=== PATIENT | female | born 1980 | race Caucasian/White ===

== ENCOUNTER 2016-10-06 18:25 | Inpatient (IN) | payer OTHER ==
[~2016-10-06 18:25] MED LIST: KETOROLAC TROMETHAMINE 60 MG/2 ML SDV ONE; ONDANSETRON HCL INJ/PF 4 MG/2 ML SDV ONE; PHENYLEPHRINE HCL INJ/PF 10 MG/1 ML SDV ONE
--- NOTE | 2016-10-06 19:32 | Non Stress Test Report ---
Non Stress Test Datetime Report Generated by CPN: 10/06/2016 19:32 DEMOGRAPHIC EGA NST: 38.5 INDICATION Indication for Study: Ordered by Provider Indication for Study (NST) Other: labor check MONITORING Monitor Explained: Monitor Explained; Test Explained; Patient Verbalized Understanding Time on Monitor: 10/06/2016 18:57 NST INTERVENTIONS NST Interventions: PO Hydration; Reposition Patient Physician Notified NST: Dr Murphy BABY A: [id number] BABY A Movement : Present Contraction Frequency : 6-7 FHR Baseline : 130 Accelerations : 15X15 Decelerations : None Variability : Moderate 6-25bpm NST Review: Meets Criteria for Reactive NST NST Review and Verified By : Tamar WUT Results: Reactive NST REPORT Report Trigger: Send Report
[2016-10-06 19:36] LABS: APPEARANCE,URINE CLOUDY; BILIRUBIN,URINE NEGATIVE (NEGATIVE); GLUCOSE, URINE NEGATIVE (NEGATIVE); KETONES,URINE TRACE mg/dL (NEGATIVE); LEUKOCYTE ESTERASE,URINE LARGE (NEGATIVE); NITRITE,URINE NEGATIVE (NEGATIVE); PROTEIN,URINE NEGATIVE (NEGATIVE); URINE SPECIFIC GRAVITY 1.006; UROBILINOGEN,URINE NEGATIVE mg/dL (<2.0)
[2016-10-06] MEDS ORDERED: CITRIC ACID/SODIUM CITRATE ORAL SOLN 15 ML UDCUP ONE (19:56)
--- NOTE | 2016-10-06 20:00 | L&D Flow Sheet ---
LD Flowsheet Datetime Report Generated by CPN: 10/06/2016 20:00 Datetime: 10/06/2016 19:50 IV/Blood Work: IV Started; IV Bolus Started; New IV Bag Hung (Yareli Caruso) Patient Care Comments: 18G LFA x1 attempt, pt tolerated well. (Yareli Caruso) Datetime: 10/06/2016 19:30 NBP Sys/Brit/Mean (mmHg): 112 (QS system process) : 57 (QS system process) : 77 (QS system process) Pulse: 74 (QS system process) Datetime: 10/06/2016 19:27 Respirations: 18 (Yareli Caruso) Monitor Mode: External; Palpation (Yareli Caruso) Monitor Interventions for UA: [place] Adjusted (Yareli Caruso) Frequency (min): 6-7 (Yareli Caruso) Quality: Mild/Moderate (Yareli Caruso) Duration (sec): 80-100 (Yareli Caruso) Resting Tone (Palpate): Relaxed (Yareli Caruso) Monitor Mode: External US (Yareli Caruso) Monitor Interventions for FHR: Ultrasound Adjusted (Yareli Caruso) FHR Baseline Rate : 130 (Yareli Caruso) Variability: Moderate 6-25 bpm (Yareli Caruso) Accelerations: 15X15 (Yareli Caruso) Decelerations: None (Yareli Caruso) Patient Position/Activity: Left Lateral (Yareli Caruso) Datetime: 10/06/2016 19:10 Pain Scale: 2 (Yareli Caruso) Pain Presence: Intermittent (Yareli Caruso) Pain Type: Cramping (Yareli Caruso) Pain Location: Abdomen; Back (Yareli Caruso) Pain Goal: 0 (Yareli Caruso) Pain Coping: Talking Through Contractions (Yareli Caruso) Dilatation (cm): closed (Yareli Caruso) Effacement (%): thick (Yareli Caruso) Station: high (Yareli Caruso) Exam by: Tamar Caruso Rn (Yareli Caruso) Vaginal Bleeding: None (Yareli Caruso) Level of Consciousness: Fully Conscious (Yareli Caruso) DTR's/Clonus: DTRs 2+; No Clonus (Yareli Caruso) Headache: Denies (Yareli Caruso) Breath Sounds, Left: Clear and Equal (Yareli Caruso) Breath Sounds, Right: Clear and Equal (Yareli Caruso) Nausea/Vomiting: Denies (Yareli Caruso) RUQ Epigastric Pain: Denies (Yareli Caruso) Patient Position/Activity: Left Lateral (Yareli Caruso) Instructional Method: Verbal (Yareli Caruso) Plan of Care: Plan of Care Discussed (Yareli Caruso) Unit Routine: [place] to Room; Call Baum; Bed; Monitoring (Yareli Caruso) Datetime: 10/06/2016 19:09 Communication: RN at Bedside; Report Given to @ Doug Caruso RN (Shobha Meza RN) Datetime: 10/06/2016 19:05 Communication: Report Given to @ Dr Murphy ([facility], [facility]) Communication Comments: Dr Murphy on unit given verbal report of arrival, h/o previous c/s with planned c/s on 10/08/16 ([facility], [facility]) Datetime: 10/06/2016 19:00 NBP Sys/Brit/Mean (mmHg): 105 (QS system process) : 61 (QS system process) : 77 (QS system process) Pulse: 75 (QS system process) Respirations: 18 ([facility]) Temperature (F): 97.9 ([facility]) Temperature (C): 36.6 (QS system process) Datetime: 10/06/2016 18:56 Patient Care Comments: previous c/s x1 arrives to unit via wheelchair with c/o contractions worsening in intensity since 0800 today. U/A collected and sent. EFM explained and applied positioned to left lateral ([facility], [facility])
[2016-10-06 20:01] LABS: URINE BARBITURATES SCREEN NEGATIVE; URINE METHADONE SCREEN NEGATIVE; URINE OPIATES LOW NEGATIVE; URINE PHENCYCLIDINE SCREEN NEGATIVE
[2016-10-06] MEDS ORDERED: CEFAZOLIN 2 GM/D5W RTU 2 GM/50 ML RTUPB IV ONE (20:21)
[2016-10-06] MEDS ORDERED: OXYTOCIN 10 UNIT/ML VIAL ONE (20:31)
[2016-10-06] MEDS ORDERED: FENTANYL CITRATE INJ/PF 100 MCG/2 ML AMPUL ONE (20:31)
[2016-10-06] MEDS ORDERED: MIDAZOLAM 2 MG/2 ML INJ ONE (20:32)
[2016-10-06] MEDS ORDERED: OXYTOCIN/NORMAL SALINE 20 UNIT/1,000 ML RTUINJ ONE (20:32)
[2016-10-06 20:44] LABS: ABSOLUTE BASOPHILS # (AUTO) 0.1 10^3/uL (0.0-0.2); ABSOLUTE EOSINOPHILS # (AUTO) 0.1 10^3/uL (0.0-0.6); ABSOLUTE LYMPHOCYTES (AUTO) 3.1 10^3/uL (0.5-4.7); ABSOLUTE MONOCYTES (AUTO) 0.7 10^3/uL (0.1-1.4); BASOPHILS % (AUTO) 0.6 % (0-2); EOSINOPHILS % (AUTO) 0.4 % (0-6); HEMATOCRIT 38.7 % (36.0-47.0); HEMOGLOBIN 12.7 g/dL (12.0-15.5); HGB HCT DIFFERENCE -0.6; LYMPHOCYTES % (AUTO) 22.6 % (13-45); MEAN CORPUSCULAR HEMOGLOBIN 26.2 pg (27.0-33.4); MEAN CORPUSCULAR HGB CONC 32.8 g/dL (32.0-36.0); MEAN CORPUSCULAR VOLUME 80 fl (80-97); MONOCYTES % (AUTO) 4.8 % (3-13); RED BLOOD COUNT 4.84 10^6/uL (3.72-5.28); RED CELL DISTRIBUTION WIDTH 14.4 % (11.5-14.0); SEGMENTED NEUTROPHILS % (AUTO) 71.6 % (42-78)
--- NOTE | 2016-10-06 22:00 | L&D Flow Sheet ---
LD Flowsheet Datetime Report Generated by CPN: 10/06/2016 22:00 Datetime: 10/06/2016 20:30 NBP Sys/Brit/Mean (mmHg): 115 (QS system process) : 58 (QS system process) : 78 (QS system process) Pulse: 78 (QS system process) Datetime: 10/06/2016 20:21 Provider Notified (Name): Dr Murphy at bedside for eval and plan of care discussion. (Yareli Caruso) Datetime: 10/06/2016 20:00 NBP Sys/Brit/Mean (mmHg): 124 (QS system process) : 57 (QS system process) : 84 (QS system process) Pulse: 108 (QS system process)
[2016-10-06] MEDS ORDERED: ACETAMINOPHEN 100 ML IV ONE (22:26)
[2016-10-06] MEDS ORDERED: MISOPROSTOL 0.2 MG TABLET ONE (22:36)
[2016-10-06] MEDS ORDERED: MORPHINE SULFATE 10 MG/ML INJ ONE (23:53)
[2016-10-06] MEDS ORDERED: OXYCODONE-ACETAMINOPHEN 5-325 MG TABLET PO PRN (23:55)
[2016-10-06] MEDS ORDERED: OXYTOCIN/NORMAL SALINE 1,000 ML IV PRN (23:55)
[2016-10-06] MEDS ORDERED: SIMETHICONE 80 MG TAB.CHEW PO PRN (23:55)
[2016-10-06] MEDS ORDERED: MEASLES,MUMPS&RUBELLA VACC/PF 0.5 ML VIAL SUBCUT PRN (23:55)
[2016-10-06] MEDS ORDERED: RINGERS SOLUTION,LACTATED 1,000 ML IV PRN (23:55)
[2016-10-06] MEDS ORDERED: PROMETHAZINE HCL INJ 25 MG/1 ML VIAL IV PRN (23:55)
[2016-10-06] MEDS ORDERED: DIPH/PERTUSS(ACELL)/TETANUS VAC/PF 0.5 ML SYR (>=10YO) IM PRN (23:55)
[2016-10-06] MEDS ORDERED: ACETAMINOPHEN 100 ML IV PRN (23:55)
[2016-10-06] MEDS ORDERED: HYDROMORPHONE HCL INJ/PF 2 MG/ML AMPULE IV PRN (23:55)
[2016-10-06] MEDS ORDERED: ACETAMINOPHEN 325 MG TABLET PO PRN (23:55)
--- NOTE | 2016-10-07 00:35 | Delivery Summary ---
Del Sum A-C Datetime Report Generated by CPN: 10/07/2016 00:35 ADMISSION DATA Chief Complaint: Uterine Contractions; Suspected Ruptured Membranes Indication for Induction: Not Applicable Admission Impression: Term, Intrauterine ; Active Labor; Ruptured Membranes Admit Provider Comments: Term. SROM for repeat LTCS and BTL DELIVERY PERSONNEL Delivery Doctor:: Angelina Murphy MD Anesthesiologist:: Luanne Lerner MD POWDER MIXER:: Debra Collado CRNA Labor and Delivery Nurse:: Yareli Caruso, logistics center manager Nurse Practitioner:: RAFA Oswald Nursery Nurse:: Theresa Johnson, RN First Helper/MATERIALS AND CORROSION ENGINEER: Kamila Semar, SALES AND MARKETING EXECUTIVE First Helper/MATERIALS AND CORROSION ENGINEER: Courtney Collado, ST MATERNAL INFORMATION Delivery Anesthesia: Spinal Medications After Delivery: Pitocin Drip 20 Units/1000ml NSS; Other-Please Comment Meds After Delivery Comment: Cytotec 1000mcg MO Maternal Complications: None LABOR SUMMARY EDC: 10/15/2016 00:00 No. Babies in Womb: 1 Attempted: No Labor Anesthesia: None LABOR INFORMATION Reason for Induction: Not Applicable Onset of Labor: 10/06/2016 19:40 Oxytocin: N/A Group B Beta Strep: negative Antibiotics # of Doses: 1 Antibiotics Time of Last Dose: 2100 Name of Antibiotic Given: ancef Steroids Given: None Reason Steroids Not Administered: Not Applicable MEMBRANES Membranes Rupture Method: Spontaneous Rupture of Membranes: 10/06/2016 19:40 Length of Rupture (hr): 1.93 Amniotic Fluid Color: Clear Amniotic Fluid Amount: Moderate Amniotic Fluid Odor: Normal STAGES OF LABOR Stage 3 hr: 0 Stage 3 min: 0 Total Time in Labor hr: 1 Total Time in Labor min: 56 VAGINAL DELIVERY Episiotomy: None Laceration Extension: N/A Laceration Type: None Laceration Repair: Not Applicable Sponge Count Correct: N/A Sharps Count Correct: N/A CSECTION DELIVERY Primary Indication: Repeat CSection Urgency: Non-Scheduled CSection Incidence: Repeat Labor: Labor Elective: Nonelective CSection Incision: Lower Uterine Transverse BABY A INFORMATION Delivery Date/Time: 10/06/2016 21:36 Method of Delivery: Born in Route : No : N/A Forceps: N/A Vacuum Extraction: N/A Shoulder Dystocia : No PRESENTATION/POSITION BABY A Presentation: Breech PLACENTA INFORMATION BABY A Placenta Delivery Time : 10/06/2016 21:36 Placenta Method of Delivery: Expressed Placenta Status: Delivered SCORES BABY A Heart Rate 1 min: >100 bpm Resp Effort 1 min: Slow, Irregular Reflex Irritability 1 min: Cough or Sneeze or Pulls Away Muscle Tone 1 min: Active Motion Color 1 min: Body [place], Extremities Blue SCORE 1 MIN: 8 Heart Rate 5 min: >100 bpm Resp Effort 5 min: Good Cry Reflex Irritability 5 min: Cough or Sneeze or Pulls Away Muscle Tone 5 min: Active Motion Color 5 min: Body [place], Extremities Blue SCORE 5 MIN: 9 INFORMATION BABY A Gestational Age at Delivery: 38.5 Gestational Status: Early Term- 37- 38.6 Weeks Outcome : Liveborn Condition : Stable Infant Sex: Female IDENTIFICATION BABY A Infant Verification Date/Time: 10/06/2016 21:42 ID Band Number: [id number] Mother's Name Verified: Yes Infant RN Verifying : Fortino Dunn, RN Additional Verifying Personnel: Erika Ronquillo CNA WEIGHT/LENGTH BABY A Birthweight (gm): 3500 Infant Weight (lb): 7 Weight (oz): 11 Infant Length (in): 20.00 Infant Length (cm): 50.80 CORD INFORMATION BABY A No. Cord Vessels: 3 Nuchal Cord : N/A Cord Blood Taken: Yes-For Eval (Mom's Blood Type - or O+) ASSESSMENT BABY A Complications: None Physical Findings at Delivery: Within Normal Limits Infant Respirations: Appears Normal Skin to Skin: Yes Skin to Skin Time (min): 20 Tenoner Operator/ALS Called : No Care By: Erika Johnson RN Transferred To: Nursery BABY B INFORMATION : N/A
[2016-10-07] MEDS: IBUPROFEN 800 MG TABLET PO SCH ×5 (00:51→23:02)
[2016-10-07] MEDS: KETOROLAC TROMETHAMINE INJ/PF 30 MG/1 ML SDV IV SCH ×3 (05:43→21:16)
--- NOTE | 2016-10-07 06:00 | L&D General Admission ---
General Admit Datetime Report Generated by CPN: 10/07/2016 06:00 INFORMATION Patient Age: 36 (08/20/2016 12:44:QS system process) EDC: 10/15/2016 00:00 (10/06/2016 18:27:Shobha Meza RNC) : 2 (10/06/2016 18:27:LAY Walsh) Para: 1 (10/06/2016 18:27:Shobha Meza RNC) Term: 1 (10/06/2016 18:27:Shobha Meza RNC) : 0 (10/06/2016 18:27:Shobha Meza RNC) Spontaneous Abortions: 0 (10/06/2016 18:27:Shobha Meza RNMarlene) Induced Abortions: 0 (10/06/2016 18:27:Shobha Meza RNC) Livin (10/06/2016 18:27:Shobha Meza RNMarlene) Cesareans: 1 (10/06/2016 18:27:LAY Walsh) VBACs: 0 (10/06/2016 18:27:Shobha Meza [facility]) Ectopic: 0 (10/06/2016 18:27:Shobha Ideal, [facility]) Multiple Births: 0 (10/06/2016 18:27:Shobha Ideal, [facility]) Baby, Number in Womb: 1 (10/06/2016 18:27:Shobha Ideal, [facility]) CARE Primary Extractions Technologist: [facility] (10/06/2016 18:27:Shobha Meza [facility]) Month of 1st Visit: March (10/06/2016 18:27:Shobha Meza [facility]) Adequate Care: Yes (10/06/2016 18:27:Shobha Meza, [facility]) Prepregnancy Weight (lb): 273 (10/06/2016 18:27:Shobha Ideal [facility]) Prepregnancy Weight (kg): 124.1 (10/06/2016 18:27:QS system process) Height (in): 64 (10/07/2016 00:46:QS system process) ALLERGIES Medication Allergy: Yes (10/06/2016 18:27:Shobha Meza RNC) Medication Allergies: Sulfa (Sulfonamide Antibiotics)/MO/rash (10/06/2016) (10/06/2016 19:55:QS system process) Latex Allergy: No Latex Allergies (10/06/2016 18:27:Shobha Meza [facility]) COMMUNICATION Primary Language: Luxembourger (10/06/2016 18:27:Shobha Meza, [facility]) Medical Tx Preferred Language: Luxembourger (10/06/2016 18:27:Shobha Meza [facility]) Communication Barrier(s): None (10/06/2016 18:27:Shobha Meza, [facility]) DEMOGRAPHICS Address: [address] [place] [id number] (10/06/2016 18:23:QS system process) Zipcode: [phone] (10/06/2016 18:23:QS system process) Home (08/20/2016 12:44:QS system process) Work (08/20/2016 12:44:QS system process) N: [phone] (08/20/2016 12:44:QS system process) Next of Kin Name: MARYBETH DYE (08/20/2016 12:44:QS system process) Next of Kin (10/05/2016 10:15:QS system process) Next of Kin Relationship: SPO (08/20/2016 12:44:QS system process) Date of : 1980 (08/20/2016 12:44:QS system process) Marital Status: (08/20/2016 12:44:QS system process) Sex: Female (08/20/2016 12:44:QS system process) Race: (08/20/2016 12:44:QS system process) Ethnicity: Non- or (08/20/2016 12:44:QS system process) Pentecostal: None (10/05/2016 10:15:QS system process) DRUG AND ALCOHOL USE Alcohol: No (10/06/2016 18:27:Shobha Camp, RNC) Cigarettes: Never Smoker. [phone] (10/06/2016 18:27:Shobha Camp, RNC) Marijuana: No (10/06/2016 18:27:Shobha Camp, RNC) Cocaine: No (10/06/2016 18:27:Shobha Camp, RNC) Other Illicit Drugs: No (10/06/2016 18:27:Shobha Camp, RNC) VACCINE HISTORY Influenza Vaccine: Yes (10/06/2016 18:27:Shobha Meza, [facility]) Influenza Date: 05/2016 (10/06/2016 18:27:Shobha Meza, [facility]) Pneumococcal Vaccine: No (10/06/2016 18:27:Shobha Camp, [facility]) Tetanus Vaccine: Yes (10/06/2016 18:27:Shobha Meza, [facility]) Tdap Vaccine: Yes (10/06/2016 18:27:Shobha Meza, [facility]) Hepatitis B Vaccine: Uncertain (10/06/2016 18:27:Shobha Camp, [facility]) Title Officer: [facility] (10/06/2016 18:27:Shobha Meza, [facility]) Feeding Preference: Breast (10/06/2016 18:27:Shobha Meza, [facility]) Circumcision: N/A (10/06/2016 18:27:Shobha Meza, [facility]) Classes Attended: No (10/06/2016 18:27:Shobha Meza, [facility]) Tubal Ligation: Yes (10/06/2016 18:27:Shobha Meza, [facility]) Tubal Authorization Signed: Yes (10/06/2016 18:27:Shobha Meza, [facility]) Consent: N/A (10/06/2016 18:27:Shobha Meza, [facility]) Consent Signed: Yes (10/06/2016 18:27:LAY Walsh) Pain Management Plans: Spinal (10/06/2016 18:27:LAY Walsh) Other Pain Management Plans: planned c/s 10/08/16 (10/06/2016 18:27:LAY Walsh) Plans for Labor and Delivery: None (10/06/2016 18:27:LAY Walsh) Support Person: Marybeth dye (10/06/2016 18:27:LAY Walsh) Support Person Relationship: (10/06/2016 18:27:LAY Walsh) Cultural/Spritual Practice: No (10/06/2016 18:27:LAY Walsh) Spir/Cult Dietary Needs: No (10/06/2016 18:27:LAY Walsh) LIVING SITUATION/DISCHARGE PLAN Living Arrangements: House (10/06/2016 18:27:LAY Walsh) Adequate Access to:: Electric; Heat; Refrigeration; Plumbing/Running water; Phone; Transportation (10/06/2016 18:27:LAY Walsh) WIC Program: No (10/06/2016 18:27:LAY Walsh) Discharge Set Decorator Person: Marybeth Dye (10/06/2016 18:27:LAY Walsh) Person to Help after Discharge: Marybeth Dye (10/06/2016 18:27:LAY Walsh) Currently Using Commun Resources: No (10/06/2016 18:27:LAY Walsh) Outside Agency/Abalone Fisherman: No (10/06/2016 18:27:LAY Walsh) Car Seat for Discharge: Yes (10/06/2016 18:27:Shobha Meza [facility]) Adoption Requested: No (10/06/2016 18:27:Shobha Meza [facility]) Pt Contact w/infant Post : N/A (10/06/2016 18:27:Shobha Meza [facility]) LABS Blood Type: O Positive (10/06/2016 18:27:Yareli Shady) Hemoglobin: 12.7 (10/06/2016 20:17:QS system process) Hematocrit: 38.7 (10/06/2016 20:17:QS system process) MCV: 80 (10/06/2016 20:17:QS system process) Group Beta Strep: negative (10/06/2016 18:27:Yarelitito Caruso) Chlamydia: Negative (10/06/2016 18:27:Yareli Shady) Rubella: Immune (10/06/2016 18:27:Yareli Shady) OB/PREVIOUS HISTORY Previous Procedures: Ultrasound; NST (10/06/2016 18:27:Yarelitito Caruso) Current Procedures: Ultrasound; NST (10/06/2016 18:27:Yareli Caruso) History of Previous : No (10/06/2016 18:27:Yareli Caruso) History of Gestational Diabetes: No (10/06/2016 18:27:Yareli Caruso) History of PIH: No (10/06/2016 18:27:Yareli Caruso) History of Incompetent Cervix: No (10/06/2016 18:27:Yareli Caruso) History of Placenta Previa/Abrup: No (10/06/2016 18:27:Yareli Caruso) History of Macrosomia: No (10/06/2016 18:27:Yareli Caruso) History of IUGR: No (10/06/2016 18:27:Yareli Caruso) History of Hemorrhage: No (10/06/2016 18:27:Yareli Caruso) History of Loss/Stillborn: No (10/06/2016 18:27:Yareli Caruso) History of : No (10/06/2016 18:27:Yareli Caruso) History of D (Rh) Sensitization: No (10/06/2016 18:27:Yareli Caruso) History Recurrent Loss/Stillborn: No (10/06/2016 18:27:Yareli Caruso) History Depression/PP Depression: No (10/06/2016 18:27:Yareli Caruso) History of Uterine Anomaly/TOPHER: No (10/06/2016 18:27:Yareli Caruso) History of Infertility: No (10/06/2016 18:27:Yareli Caruso) History of ART Treatment: No (10/06/2016 18:27:Yareli Caruso) History of TOPHER: No (10/06/2016 18:27:Yareli Caruso) Comments Obstetrical History: 2012-1st 2017- current (10/06/2016 18:27:Yareli Caruso) MEDICAL HISTORY Med Hx Diabetes: No (10/06/2016 18:27:Yareli Caruso) Med Hx Hypertension: No (10/06/2016 18:27:Yareli Caruso) Med Hx Heart Disease: No (10/06/2016 18:27:Yareli Caruso) Med Hx Autoimmune Disorder: No (10/06/2016 18:27:Yareli Caruso) Med Hx Kidney Disease/UTI: No (10/06/2016 18:27:Yareli Caruso) Med Hx Neurologic/Epilepsy: No (10/06/2016 18:27:Yareli Caruso) Med Hx Psychiatric Disorders: No (10/06/2016 18:27:Yareli Caruso) Med Hx Hepatitis/Liver Disease: No (10/06/2016 18:27:Yareli Caruso) Med Hx Varicosities/Phlebitis: No (10/06/2016 18:27:Yareli Caruso) Med Hx Thyroid Dysfunction: No (10/06/2016 18:27:Yareli Caruso) Med Hx Trauma/Violence: No (10/06/2016 18:27:Yareli Caruso) Med Hx Blood Transfusion: No (10/06/2016 18:27:Yareli Caruso) Med Hx Pulmonary (Asthma,TB): No (10/06/2016 18:27:Yareli Caruso) Med Hx Breast: No (10/06/2016 18:27:Yareli Caruso) Med Hx HAIRSPRING 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 Surgery: No (10/06/2016 18:27:Yareli Caruso) Med Hx Hospitalization/Surgery: No (10/06/2016 18:27:Yareli Caruso) Med Hx Anesthetic Complications: No (10/06/2016 18:27:Yareli Caruso) Med Hx Abnormal Pap Smear: No (10/06/2016 18:27:Yareli Caruso) Other Medical Diseases: No (10/06/2016 18:27:Yareli Caruso) Med Hx Significant Family Hx: No (10/06/2016 18:27:Yareli Caruso) Details of Med/Surg Hx: obesity (10/06/2016 18:27:Yareli Caruso) INFECTIOUS HISTORY Inf Hx Gonorrhea: No (10/06/2016 18:27:Yareli Caruso) Inf Hx Chlamydia: No (10/06/2016 18:27:Yareli Caruso) Inf Hx Syphilis: No (10/06/2016 18:27:Yareli Caruso) Inf Hx HIV/AIDS: No (10/06/2016 18:27:Yareli Caruso) Inf Hx Human Papilloma Virus: No (10/06/2016 18:27:Yareli Caruso) Inf Hx Pt/Partner Genital Herpes: No (10/06/2016 18:27:Yareli Caruso) Inf Hx Tuberculosis/Exposure: No (10/06/2016 18:27:Yareli Caruso) Inf Hx Hepatitis B,C: No (10/06/2016 18:27:Yareli Caruso) Inf Hx Rash or Viral Illness: No (10/06/2016 18:27:Yareli Caruso) GENETIC HISTORY Gen Hx Age >=35 at VANESSA: No (10/06/2016 18:27:Yareli Caruso) Gen Hx Thalassemia: No (10/06/2016 18:27:Yareli Caruso) Gen Hx Congenital Heart Defect: No (10/06/2016 18:27:Yareli Caruso) Gen Hx Neural Tube Defect: No (10/06/2016 18:27:Yareli Caruso) Gen Hx Down's Syndrome: No (10/06/2016 18:27:Yareli Caruso) Gen Hx Maxwell-Sachs: No (10/06/2016 18:27:Yareli Caruso) Gen Hx Dov: No (10/06/2016 18:27:Yareli Caruso) Gen Hx Familial Dysautonomia: No (10/06/2016 18:27:Yareli Caruso) Gen Hx Sickle Cell Disease/Trait: No (10/06/2016 18:27:Yareli Caruso) Gen Hx Hemophilia/Blood Disorder: No (10/06/2016 18:27:Yareli Caruso) Gen Hx Muscular Dystrophy: No (10/06/2016 18:27:Yareli Caruso) Gen Hx Cystic Fibrosis: No (10/06/2016 18:27:Yareli Caruso) Gen Hx Huntingtons Chorea: No (10/06/2016 18:27:Yareli Caruso) Gen Hx Mental Retardation/Autism: No (10/06/2016 18:27:Yareli Caruso) Gen Hx Tested for Fragile X: No (10/06/2016 18:27:Yareli Caruso) Gen Hx Other Inher/Chromosomal: No (10/06/2016 18:27:Yareli Caruso) Gen Hx Maternal Metabolic DO: No (10/06/2016 18:27:Yareli Caruso) Gen Hx Pt Father or FOB Defect: No (10/06/2016 18:27:Yareli Caruso) Gen Hx Other Genetic History: No (10/06/2016 18:27:Yareli Caruso) Gen Hx Drugs/Meds since LMP: No (10/06/2016 18:27:Yareli Caruso)
--- NOTE | 2016-10-07 06:00 | L&D Current Admission ---
Current Admit Datetime Report Generated by CPN: 10/07/2016 06:00 ADMISSION INFORMATION Current Admit Date/Time: 10/06/2016 19:40 (10/06/2016 19:10:Yareli Caruso) Reason for Admission: Rupture of Membranes (10/06/2016 19:10:Yareli Caruso) Chief Complaint: Contractions (10/06/2016 19:10:Yareli Caruso) EGA per Dates: 38.5 (10/06/2016 19:10:QS system process) Method of Arrival: Wheelchair (10/06/2016 19:10:Yareli Caruso) Admitted From: Home (10/06/2016 19:10:Yareli Caruso) Records Available: Yes (10/06/2016 19:10:Yareli Caruso) General Admission Information: Reviewed (10/06/2016 19:10:Yareli Caruso) BELONGINGS/ADVANCED DIRECTIVES Other Belongings: see valuables consent form. (10/06/2016 19:10:Yareli Caruso) Disposition of Belongings: Kept with Patient (10/06/2016 19:10:Yareli Caruso) Comments Regarding Disposition: see valuables consent form. (10/06/2016 19:10:Yareli Caruso) Advance Direct for Healthcare: No, and Wants No Information (10/06/2016 19:10:Yareli Caruso) Durable Power of Quality Improvement Consultant: No (10/06/2016 19:10:Yareli Caruso) Living Will: No (10/06/2016 19:10:Yareli Caruso) Organ Donor: Yes (10/06/2016 19:10:Yareli Caruso) Pt Rights Information Given: Yes (10/06/2016 19:10:Yareli Caruso) Pt Understands Pt Rights: Yes (10/06/2016 19:10:Yareli Caruso) LEARNING ASSESSMENT Knowledge Level: Understands L_D Process; Understands Care Activities; Had Pre-Hospital Education; Understands Diagnosis (10/06/2016 19:10:Yareli Caruso) Barriers to Learning: Visual Deficit (10/06/2016 19:10:Yareli Caruso) Learning Readiness: Motivated (10/06/2016 19:10:Yareli Caruso) Learns Best By: 1 to 1 Instruction; Reading; Videos; Group Discussion; Demonstration (10/06/2016 19:10:Yareli Caruso) Learning Needs: Labor and Delivery Process; Pain Management; Symptoms to Report; Treatment Plan; Medication; Diagnosis; Nutrition; Equipment; Infant Care (10/06/2016 19:10:Yareli Caruso) DOMESTIC VIOLANCE SCREENING Dom Viol Threatened/Hurt: No (10/06/2016 19:10:Yarelitito Caruso) Hx of Abuse/Neglect past 2yrs: No (10/06/2016 19:10:Yareli Caruso) Feel Unsafe Going Home: No (10/06/2016 19:10:Yareli Caruso) Addt'l Observ Indicating Abuse: No (10/06/2016 19:10:Yareli Caruso) Reason Unable to Complete Screen: N/A, Screen Completed (10/06/2016 19:10:Yareli Caruso) Considered Personal Harm/Suicide: No (10/06/2016 19:10:Yarelitito Caruso) NUTRITIONAL/FUNCTIONAL SCREENING Problem with Appetite >5 Days: No (10/06/2016 19:10:Yarelitito Caruso) Chew/Swallow Difficulties: No (10/06/2016 19:10:Yareli Caruso) Inappropriate Wt Gain/Loss: No (10/06/2016 19:10:Yareli Caruso) Presence Skin Breakdown/Ulcer: No (10/06/2016 19:10:Yareli Caruso) Special Diet: No (10/06/2016 19:10:Yareli Caruso) Pt Requests Social Services Designee Visit: No (10/06/2016 19:10:Yareli Caruso) Hx of Any of the Following?: N/A (10/06/2016 19:10:Yareli Caruso) New Diagnosis of: N/A (10/06/2016 19:10:Yareli Caruso) Requires Assist w/Ambulation: No (10/06/2016 19:10:Yareli Caruso) Uses Assist Device to Ambulate: No (10/06/2016 19:10:Yareli Caruso) Pt Requires Help w/ADL's: No (10/06/2016 19:10:Yareli Caruso)
--- NOTE | 2016-10-07 06:15 | L&D Flow Sheet ---
LD Flowsheet Datetime Report Generated by CPN: 10/07/2016 06:15 Datetime: 10/06/2016 23:50 NBP Sys/Brit/Mean (mmHg): 98 (Yareli Caruso) : 42 (Yarlei Caruso) Pulse: 71 (Yareli Caruso) Respirations: 18 (Yareli Caruso) SpO2 (%): 100 (Yareli Caruso) Temperature (F): 97.6 (Yareli Caruso) Temperature (C): 36.4 (QS system process) Temperature Route: Oral (Yareli Caruso) Datetime: 10/06/2016 23:37 NBP Sys/Brit/Mean (mmHg): 101 (Yareli Caruso) : 58 (Yareli Caruso) Pulse: 79 (Yareli Caruso) Respirations: 18 (Yareli Caruso) SpO2 (%): 99 (Yareli Caruso) Datetime: 10/06/2016 23:25 NBP Sys/Brit/Mean (mmHg): 104 (Yareli Caruso) : 55 (Yareli Caruso) Pulse: 72 (Yareli Caruso) Respirations: 18 (Yareli Caruso) SpO2 (%): 100 (Yareli Caruso) Datetime: 10/06/2016 23:01 NBP Sys/Brit/Mean (mmHg): 107 (Yareli Caruso) : 57 (Yareli Caruso) Pulse: 70 (Yareli Caruso) Respirations: 18 (Yareli Caruso) SpO2 (%): 99 (Yareli Caruso) Datetime: 10/06/2016 22:50 NBP Sys/Brit/Mean (mmHg): 100 (Yareli Caruso) : 56 (Yareli Caruso) Pulse: 70 (Yareli Caruso) Respirations: 18 (Yareli Caruso) SpO2 (%): 99 (Yareli Caruso) Datetime: 10/06/2016 22:40 NBP Sys/Brit/Mean (mmHg): 106 (Yareli Caruso) : 54 (Yareli Caruso) Pulse: 70 (Yareli Caruso) Respirations: 18 (Yareli Caruso) SpO2 (%): 99 (Yareli Caruso) Datetime: 10/06/2016 22:30 NBP Sys/Brit/Mean (mmHg): 98 (Yareli Caruso) : 61 (Yareli Caruso) Pulse: 65 (Yareli Caruso) Respirations: 18 (Yareli Caruso) SpO2 (%): 99 (Yareli Caruso) Datetime: 10/06/2016 22:20 NBP Sys/Brit/Mean (mmHg): 98 (Yareli Caruso) : 54 (Yareli Acruso) Pulse: 65 (Yareli Caruso) Respirations: 18 (Yareli Caruso) SpO2 (%): 99 (Yareli Caruso) Datetime: 10/06/2016 22:15 Pain Scale: 0 (Yareli Caruso) Pain Presence: None/Denies (Yareli Caruso) Datetime: 10/06/2016 22:05 NBP Sys/Brit/Mean (mmHg): 99 (Yareli Caruso) : 67 (Yareli Caruso) Pulse: 66 (Yareli Caruso) Respirations: 18 (Yareli Caruso) SpO2 (%): 99 (Yareli Caruso) Temperature (F): 97.2 (Yareli Caruso) Temperature (C): 36.2 (QS system process) Temperature Route: Oral (Yareli Caruso) Pain Scale: 0 (Yareli Caruso) Pain Presence: None/Denies (Yareli Caruso) Datetime: 10/06/2016 21:36 Comments: delivery of baby girl (Yareli Caruso) Datetime: 10/06/2016 21:02 Patient Care Comments: patient transfetred to OR via bed with RN (Yareli Caruso) Datetime: 10/06/2016 21:01 Antibiotics: Ancef IV (Gm) @ 2 (Yareli Caruso) Patient Care Comments: external monitors removed for transport to OR. (Yareli Caruso) Datetime: 10/06/2016 20:30 NBP Sys/Brit/Mean (mmHg): 115 (QS system process) : 58 (QS system process) : 78 (QS system process) Pulse: 78 (QS system process) Respirations: 18 (Yareli Caruso) Monitor Mode: External; Palpation (Yareli Caruso) Monitor Interventions for UA: [place] Adjusted (Yareli Caruso) Frequency (min): 4-5 (Yareli Caruso) Quality: Moderate (Yareli Caruso) Duration (sec): 70-90 (Yareli Caruso) Resting Tone (Palpate): Relaxed (Yareli Caruso) Monitor Mode: External US (Yareli Caruso) Monitor Interventions for FHR: Ultrasound Adjusted (Yareli Caruso) FHR Baseline Rate : 130 (Yareli Caruso) FHR Baseline Changes: No Baseline Change (Yareli Caruso) Variability: Moderate 6-25 bpm (Yareli Caruso) Accelerations: 15X15 (Yareli Caruso) Decelerations: None (Yareli Caruso) Patient Position/Activity: Left Lateral (Yareli Caruso) Datetime: 10/06/2016 20:21 Provider Notified (Name): Dr Murphy at bedside for eval and plan of care discussion. (Yareli Caruso) Datetime: 10/06/2016 20:15 Antiemetics/Antacids: Bicitra 15 ml PO (Yareli Caruso) Datetime: 10/06/2016 20:00 NBP Sys/Brit/Mean (mmHg): 124 (QS system process) : 57 (QS system process) : 84 (QS system process) Pulse: 108 (QS system process) Datetime: 10/06/2016 19:59 Respirations: 18 (Yareli Caruso) Monitor Mode: External; Palpation (Yareli Caruso) Monitor Interventions for UA: [place] Adjusted (Yareli Caruso) Frequency (min): 4-5 (Yareli Caruso) Quality: Moderate (Yareli Caruso) Duration (sec): 70-90 (Yareli Caruso) Resting Tone (Palpate): Relaxed (Yareli Caruso) FHR Baseline Changes: Unable to Determine (Yareli Caruso) Comments: rn at the bdside for fhr monitor adjustment and maternal repositioing (Yareli Caruso) Patient Position/Activity: Left Lateral (Yareli Caruso) Datetime: 10/06/2016 19:54 Anesthesia Comments: Dr Noelhead at bedside to assess pt. (Yareli Caruso) Datetime: 10/06/2016 19:50 IV/Blood Work: IV Started; IV Bolus Started; New IV Bag Hung (Yareli Caruso) Patient Care Comments: 18G LFA x1 attempt, pt tolerated well. (Yareli Caruso) Datetime: 10/06/2016 19:40 Membrane Status: Ruptured (Yareli Caruso) Membranes Ruptured Date/Time: 10/06/2016 19:40 (Yareli Caruso) Membranes Rupture Method: Spontaneous (Yareli Caruso) Amniotic Fluid Color: Clear (Yareli Caruso) Amniotic Fluid Amount: Moderate (Yareli Caruso) Amniotic Fluid Odor: Normal (Yareli Caruso) Provider Notified (Name): Dr Murphy notified of ROM and was caleed to start when OR is cleaned and ready. (Yareli Caruso) Datetime: 10/06/2016 19:30 NBP Sys/Brit/Mean (mmHg): 112 (QS system process) : 57 (QS system process) : 77 (QS system process) Pulse: 74 (QS system process) Datetime: 10/06/2016 19:27 Respirations: 18 (Yareli Caruso) Monitor Mode: External; Palpation (Yareli Caruso) Monitor Interventions for UA: Hardtner Adjusted (Yareli Caruso) Frequency (min): 6-7 (Yareli Caruso) Quality: Mild/Moderate (Yareli Caruso) Duration (sec): 80-100 (Yareli Caruso) Resting Tone (Palpate): Relaxed (Yareli Caruso) Monitor Mode: External US (Yareli Caruso) Monitor Interventions for FHR: Ultrasound Adjusted (Yareli Caruso) FHR Baseline Rate : 130 (Yareli Caruso) Variability: Moderate 6-25 bpm (Yareli Caruso) Accelerations: 15X15 (Yareli Caruso) Decelerations: None (Yareli Caruso) Patient Position/Activity: Left Lateral (Yareli Caruso) Datetime: 10/06/2016 19:10 Pain Scale: 2 (Yareli Caruso) Pain Presence: Intermittent (Yareli Caruso) Pain Type: Cramping (Yareli Caruso) Pain Location: Abdomen; Back (Yareli Caruso) Pain Goal: 0 (Yareli Caruso) Pain Coping: Talking Through Contractions (Yareli Caruso) Dilatation (cm): closed (Yareli Caruso) Effacement (%): thick (Yareli Caruso) Station: high (Yareli Caruso) Exam by: Tamar Caruso Rn (Yareli Caruso) Vaginal Bleeding: None (Yareli Caruso) Level of Consciousness: Fully Conscious (Yareli Caruso) DTR's/Clonus: DTRs 2+; No Clonus (Yareli Caruso) Headache: Denies (Yareli Caruso) Breath Sounds, Left: Clear and Equal (Yareli Caruso) Breath Sounds, Right: Clear and Equal (Yareli Caruso) Nausea/Vomiting: Denies (Yareli Caruso) RUQ Epigastric Pain: Denies (Yarelitito Caruso) Patient Position/Activity: Left Lateral (Yareli Caruso) Instructional Method: Verbal (Yareli Caruso) Plan of Care: Plan of Care Discussed (Yareli Caruso) Unit Routine: Reading to Room; Call Baum; Bed; Monitoring (Yareli Caruso) Datetime: 10/06/2016 19:09 Communication: RN at Bedside; Report Given to @ Doug Caruso RN (LAY Walsh) Datetime: 10/06/2016 19:05 Communication: Report Given to @ Dr Murphy ([facility], [facility]) Communication Comments: Dr Murphy on unit given verbal report of arrival, h/o previous c/s with planned c/s on 10/08/16 ([facility], [facility]) Datetime: 10/06/2016 19:00 NBP Sys/Brit/Mean (mmHg): 105 (QS system process) : 61 (QS system process) : 77 (QS system process) Pulse: 75 (QS system process) Respirations: 18 (Shobha [place], RNC) Temperature (F): 97.9 ([facility], [facility]) Temperature (C): 36.6 (QS system process) Datetime: 10/06/2016 18:56 Patient Care Comments: previous c/s x1 arrives to unit via wheelchair with c/o contractions worsening in intensity since 0800 today. U/A collected and sent. EFM explained and applied positioned to left lateral (Shobha [place], RNC) Datetime: 10/06/2016 18:27 Membranes Rupture Method: Spontaneous (Bobbi Dunn RN) Amniotic Fluid Color: Clear (Bobbi Dunn RN) Amniotic Fluid Odor: Normal (Bobbi Dunn RN)
--- NOTE | 2016-10-07 06:15 | L&D Care Plan ---
LD CARE PLANS Datetime Report Generated by CPN: 10/07/2016 06:15 Datetime: 10/06/2016 19:30 Pain State: Actual (Bobbi Dunn RN) Related To: Labor and Delivery Process; Surgical Procedure; Treatment and Procedures; Post (Bobbi Dunn RN) Goal(s): Patients Pain will be Assessed and Managed; Patient will Verbalize Adequate Relief of Pain or the Ability to [place] with Current Pain (Bobbi Dunn RN) Interventions: Assess Pain Severity on Scale of 0 (None) to 5 (Severe); Assess Type, Location and Intensity of Pain Each Time Client Reports Discomfort and Notify Provider if Unusal Pain Develops; Encourage Proper Breathing and Relaxation Techniques; Offer Alternatives Such as Repositioning, Calm Environment, Massages, Diversional Activities, Ice Pack, Splinting, and Ambulation; Administer Analgesics as Ordered; Assist with Epidural Placement as Appropriate; Evaluate Therapeutic Effectiveness of Medication and Treatments (Bobbi Dunn RN) Outcome: Patient will Report Absence or Relief of Pain Consistent with Established Pain Goal (Bobbi Dunn RN) Status: Ongoing (Bobbi Dunn RN) Outcome: Patient will have a Decrease in Signs and Symptoms of Discomfort (Bobbi Dunn RN) Status: Ongoing (Bobbi Dunn RN) Outcome: Pain will be Controlled During Procedures (Bobbi Dunn RN) Status: Ongoing (Bobbi Dunn RN) Anxiety State: Actual (Bobbi Dunn RN) Related To: Surgical Procedure; Perceived or Actual Threat to ; Significant Life Event (Bobbi Dunn RN) Goal(s): Patient will have Decreased Anxiety and be able to Function at Acceptable Levels (Bobbi Dunn RN) Interventions: Assess Verbal and Nonverbal Behavioral Indicators of Anxiety; Assist Patient to Identify and Verbalize Symptoms of Anxiety; Identify and Demonstrate Techniques to Control Anxiety; Assist Patient with Coping Mechanisms to Manage Anxiety; Provide Theraputic Touch for the Patient; Explain to Patient, Using a Calm Reassuring Approach and Nonmedical Terms, All Activities, Procedures, and Concerns; Instruct Patient and Family about Post Discharge Care, Limitations, Symptoms to Report and Resources Available (Bobbi Dunn RN) Outcome: Patient will Identify, Verbalize and Demonstrate Techniques to Control Anxiety (Bobbi Dunn RN) Status: Ongoing (Bobbi Dunn RN) Outcome: Patient's Posture, Facial Expressions, Gestures and Activity Level will Reflect Decreased Anxiety (Bobbi Dunn RN) Status: Ongoing (Bobib Dunn RN) Outcome: Patient will Verbalize a Sense of Control and/or Acceptance of the Situation (Bobbi Dunn RN) Status: Ongoing (Bobbi Dunn RN) Outcome: Patient will Identify and Utilize Support Person (Bobbi Dunn RN) Status: Ongoing (Bobbi Dunn RN) Knowledge Deficit State: Risk For (Bobbi Dunn RN) Related To: Surgical Procedures; Treatment and Procedures; Impending Alterations in Family Dynamics (Bobbi Dunn RN) Goal(s): Patient will Accurately Verbalize Understanding of Plan of Care and Treatment; Patient and Family will Accurately Verbalize Understanding of the Disease Process (Bobbi Dunn RN) Interventions: Assess Motivation and Willingness of Patient/Family to Learn; Assess Preferred Learning Mode: One to One Instruction, Reading, Videos, Group Discussion or Demonstration; Assess Barriers to Learning: Pain, Emotional State, Language Barrier, Cognitive Impairment, Visual or Hearing Deficits; Assess Patient and Family Knowledge of Disease Process, Medications and Treatment; Discuss Therapy and/or Treatment Options, Describe Rationale Behind Management, Therapy and Treatment Recommendations; Instruct Patient and Family on Signs and Symptoms to Report; Instruct Patient and Family on Medication Effects and Side Effects; Provide Appropriate and Timely Education Using Multiple Techniques; Provide Patient and Family with Support Group Information and Resources; Give Clear and Thorough Explanations and Demonstrations (Bobbi Dunn RN) Outcome: Patient and Family will Verbalize Understanding of Condition, Treatment and Signs and Symptoms to Report (Bobbi Dunn RN) Status: Ongoing (Bobbi Dunn RN) Outcome: Patient will Identify Perceived Learning Needs and Express Motivation to Learn (Bobbi Dunn RN) Status: Ongoing (Bobbi Dunn RN) Outcome: Patient will Verbalize Understanding of Desired Content, and/or Performs Desired Skill Prior to Discharge (Bobbi Dunn RN) Status: Ongoing (Bobbi Dunn RN) Infection State: Risk For (Bobbi Dunn RN) Related To: Surgical Procedures (Bobbi Dunn RN) Goal(s): The Patient will be Free of Infection, Vital Signs Stable and Lab Work within Normal Parameters (Bobbi Dunn RN) Interventions: Instruct and Reinforce Proper Handwashing, Hygiene, and Care Techniques to Patient and Family; Monitor Vital Signs; Monitor Patient for the Following Signs of Infection: Fever, Abdominal Tenderness, Unusual Discharge; Monitor Aminiotic Fluid, Urine and Lochia for Color and Odor; Observe Wounds, Incisions and Invasive Line Sites for Redness, Drainage and Edema; Assess IV Sites per Hospital Policy; Monitor Lab and Test Results and Notify Provider of Abnormal Findings; Assess Nutritional Status and Promote Good Nutrition (Bobbi Dunn RN) Outcome: Patient will Remain Free of Infection (Bobbi Dunn RN) Status: Ongoing (Bobbi Dunn RN) Outcome: Infection will be Recognized Early to Allow for Prompt Treatment (Bobbi Dunn RN) Status: Ongoing (Bobbi Dunn RN) Outcome: Patient will have Vital Signs Within Expected Range (Bobbi Dunn RN) Status: Ongoing (Bobbi Dunn RN) Fluid Volume State: Risk For (Bobbi Dunn RN) Related To: Surgical Procedures (Bobbi Dunn RN) Goal(s): Patient will Achieve and Maintain a Balanced Fluid Volume Status; Hemodynamically Stable (Bobbi Dunn RN) Interventions: Monitor Vital Signs; Auscultate Breath Sounds; Monitor Patient for Skin Turgor, Mucous Membranes, Dry Skin, Weakness, Headaches and Confusion; Provide Oral Fluids as Ordered; Initiate and Maintain Intravenous Fluids as Ordered; Monitor Intake and Output as Indicated Per Patient Status; Accurately Measure Blood Loss; Monitor Lab and Test Results as Obtained and Notify Provider of Abnormal Findings; Monitor Patient's Weight (Bobbi Dunn RN) Outcome: Patient will have Clear Lung Sounds (Bobbi Dunn RN) Status: Ongoing (Bobbi Dunn RN) Outcome: Patient will have Vital Signs within Expected Range (Bobbi Dunn RN) Status: Ongoing (Bobbi Dunn RN) Outcome: Urine Output will be within Expected Range (Bobbi Dunn RN) Status: Ongoing (Bobbi Dunn RN) Outcome: Patient will have Minimal Generalized or Upper Extremity Edema (Bobbi Dunn RN) Status: Ongoing (Bobbi Lattibeaudeir, RN) Injury State: Risk For (Bobbi Dunn RN) Related To: Anesthesia; Decreased Mobility (Bobbi Dunn RN) Goal(s): Patient will Remain Free from Injury (Bobbi Dunn RN) Interventions: Monitoring as per Hospital Protocol; Assess Neurological Status; Perform Risk Assessment of Patients with Induction and ; Perform Fall Risk Assessment and Prevention per Hospital Protocol; Perform DVT Risk Assessment and Prophylaxis per Hospital Protocol; Ensure that Oxygen, Suction, and Resuscitation Medications and Equipment are Readily Available; Confirm Patient ID Prior to Procedure(s) and Medication Administration per Hospital Policy (Bobbi Dunn RN) Outcome: Successful Fall Risk Prevention (Bobbi Dunn RN) Status: Ongoing (Bobbi Dunn RN) Outcome: Patient will Deliver Infant without Adverse [place]ela (Bobbi Dunn RN) Status: Ongoing (Bobbi Dunn, RN) Outcome: Patient's Neurological Status will Remain Stable (Bobbi Dunn RN) Status: Ongoing (Bobbi Lattibcory, RN) Impaired Skin Integrity State: Actual (Bobbi Dunn RN) Related To: Surgical Procedures (Bobbi Dunn RN) Goal(s): Patient will Maintain Optimal Skin Integrity, Free of Breakdown, Injury or Infection (Bobbi Dunn RN) Interventions: Complete Screening for Pressure Ulcer Risk and Initiate Protocol per Hospital Policy; Monitor Site of Skin Impairment for Color Changes, Redness, Swelling, Warmth, Pain or Other Signs of Infection; Encourage and Assist with Position Changes; Monitor Patient's Mobility Status; Provide Adequate Nutrition and Fluids; Teach Patient Appropriate Hygienic Care; Teach Patient/Family Skin Care Management (Bobbi Dunn RN) Outcome: Patient will not have Evidence of Injury Such as Skin Breakdown, Scrapes, Cuts, or Bruising (Bobbi Dunn RN) Status: Ongoing (Bobbi Dunn RN) Outcome: Patient will Report Any Altered Sensation or Pain at Site of Skin Impairment (Bobbi Dunn RN) Status: Ongoing (Bobbi Dunn RN) Outcome: Patients Incisions and Wounds will be without Signs or Symptoms of Infection (Bobbi Dunn RN) Status: Ongoing (Bobbi Dunn RN) Outcome: Patient will Demonstrate Understanding of Plan to Heal Skin and Prevent Reinjury and Verbalize Risk Factors (Bobbi Dunn RN) Status: Ongoing (Bobbi Dunn RN) Parenting Impaired State: Not Applicable (Bobbi Dunn RN) Nutrition State: Risk For (Bobbi Dunn RN) Related To: ; Surgical Procedure; Prolonged Bedrest (Bobbi Dunn RN) Goal(s): Patient will have an Intake of Nutrients Sufficient to Meet Metabolic Needs (Bobbi Dunn RN) Interventions: Nutritional Screening and Assessment per Hospital Policy; Consult Door Trimmer for Further Assessment and Recommendations Regarding Food Preferences and Nutritional Support; Allow Patient to Plan and Order Diet when Possible; Monitor Laboratory Values That Indicate Nutritional Well-being; Consult Manager Training And Development for Nutritional Support Regarding Requirements; Document Actual Weight Initially and Weekly (Do Not Estimate); Encourage Patient Participation in Maintaining a Food Log as Indicated; Educate Patient on the Importance of Maintaining an Adequate Caloric Intake (Bobbi Dunn RN) Outcome: Patient will Receive Adequate Calories and Fluid Volume to Meet Metabolic Needs (Bobbi Dunn RN) Status: Ongoing (Bobbi Dunn RN) Outcome: Patient will Select Foods or Meals that Support Adequate Nutrition (Bobbi Dunn RN) Status: Ongoing (Bobbi Dunn RN) Grieving State: Not Applicable (Bobbi Dunn RN) Additional Care Plan State: Actual (Bobbi Dunn RN) Nursing Diagnosis or r/t: (Bobbi Dunn RN) Goal(s): Patient will breastfeed at least 8 times in 24 hours. (Bobbi Dunn RN) Interventions: Support patient and family in efforts. (Bobbi Dunn RN) Outcome Status: Ongoing (Bobbi Dunn RN)
[2016-10-07 07:21] LABS: HEMATOCRIT 33.9 % (36.0-47.0); HEMOGLOBIN 11.2 g/dL (12.0-15.5); HGB HCT DIFFERENCE -0.3; MEAN CORPUSCULAR HEMOGLOBIN 26.5 pg (27.0-33.4); MEAN CORPUSCULAR HGB CONC 33.1 g/dL (32.0-36.0); MEAN CORPUSCULAR VOLUME 80 fl (80-97); RED BLOOD COUNT 4.24 10^6/uL (3.72-5.28); RED CELL DISTRIBUTION WIDTH 14.4 % (11.5-14.0); WHITE BLOOD COUNT 15.4 10^3/uL (4.0-10.5)
[2016-10-07] MEDS: DOCUSATE SODIUM 100 MG CAPSULE PO SCH ×2 (09:39→18:22)
[2016-10-07] MEDS: PRENATAL VITAMIN W-O CA NO5/FE FUMARATE/FA CAPSULE PO SCH (09:39)
[2016-10-07] MEDS: OXYCODONE-ACETAMINOPHEN 5-325 MG TABLET PO PRN (12:29)
--- NOTE | 2016-10-07 14:16 | PDOC PROGRESS REPORT ---
Subjective-OB Subjective: Post Delivery Day: 36 year old. Denies any needs at this time. Pt doing well, no concerns. She reports light bleeding, regular diet and voiding well. Physical Exam (OB) Vital Signs: Temp Pulse Resp BP Pulse Ox 97.9 F 73 18 113/55 L 98 10/07/16 12:41 10/07/16 12:41 10/07/16 12:41 10/07/16 12:41 10/07/16 12:41 Intake & Output 10/06/16 10/07/16 10/08/16 06:59 06:59 06:59 Output Total 725 375 Balance -725 -375 Weight 130.65 kg - Dressing Removed: No Incision: Well Approximated - Bilateral Tubal Ligation Dressing Removed: No Site: Well Approximated - Lochia Lochia Amount: Scant < 10 ml Lochia Color: Rubra/Red - Abdomen Description: Tender, Soft Hernia Present: No Fundal Description: Firm, Midline Fundal Height: u/u - u/2 Objective-Diagnostic Laboratory: 10/07/16 06:38 10/06/16 10/06/16 10/06/16 18:47 20:17 20:17 WBC 14.0 H RBC 4.84 Hgb 12.7 Hct 38.7 MCV 80 MCH 26.2 L MCHC 32.8 RDW 14.4 H Plt Count 247 Seg Neutrophils % 71.6 Lymphocytes % 22.6 Monocytes % 4.8 Eosinophils % 0.4 Basophils % 0.6 Absolute Neutrophils 10.0 H Absolute Lymphocytes 3.1 Absolute Monocytes 0.7 Absolute Eosinophils 0.1 Absolute Basophils 0.1 Urine Color YELLOW Urine Appearance CLOUDY Urine pH 7.0 Ur Specific [place] 1.006 Urine Protein NEGATIVE Urine Glucose (UA) NEGATIVE Urine Ketones TRACE H Urine Blood NEGATIVE Urine Nitrite NEGATIVE Ur Leukocyte Esterase LARGE H Blood Type O POSITIVE Antibody Screen NEGATIVE 10/07/16 06:38 WBC 15.4 H RBC 4.24 Hgb 11.2 L Hct 33.9 L MCV 80 MCH 26.5 L MCHC 33.1 RDW 14.4 H Plt Count 216 Seg Neutrophils % Lymphocytes % Monocytes % Eosinophils % Basophils % Absolute Neutrophils Absolute Lymphocytes Absolute Monocytes Absolute Eosinophils Absolute Basophils Urine Color Urine Appearance Urine pH Ur Specific [place] Urine Protein Urine Glucose (UA) Urine Ketones Urine Blood Urine Nitrite Ur Leukocyte Esterase Blood Type Antibody Screen Assessment and Plan(PN) - Assessment and Plan (1) delivery delivered Is this a current diagnosis for this admission?: Yes - Time Spent with Patient Time with patient: Less than 15 minutes Medications reviewed and adjusted accordingly: Yes - Disposition Anticipated Discharge: Home Within: within 24 hours
[2016-10-08] MEDS: OXYCODONE-ACETAMINOPHEN 5-325 MG TABLET PO PRN (00:22)
[2016-10-08] MEDS: IBUPROFEN 800 MG TABLET PO SCH ×3 (05:36→17:27)
[2016-10-08 08:47] VITALS: BP 123/61
[2016-10-08] MEDS: DOCUSATE SODIUM 100 MG CAPSULE PO SCH ×2 (09:55→17:26)
[2016-10-08] MEDS: PRENATAL VITAMIN W-O CA NO5/FE FUMARATE/FA CAPSULE PO SCH (09:55)
--- NOTE | 2016-10-08 10:01 | PDOC PROGRESS REPORT ---
Subjective-OB Subjective: Post Delivery Day: 36 year old. Denies any needs at this time. Ready to go home. Physical Exam (OB) Vital Signs: Temp Pulse Resp BP Pulse Ox 97.6 F 70 14 123/61 99 10/08/16 08:15 10/08/16 08:15 10/08/16 08:15 10/08/16 08:15 10/08/16 08:15 Intake & Output 10/07/16 10/08/16 10/09/16 06:59 06:59 06:59 Output Total 725 375 Balance -725 -375 Weight 130.65 kg - Dressing Removed: Yes Incision: Well Approximated Closure Type: Wagner - Bilateral Tubal Ligation Dressing Removed: Yes Site: Well Approximated - Lochia Lochia Amount: Scant < 10 ml Lochia Color: Rubra/Red - Abdomen Description: Soft Hernia Present: No Bowel Sounds: Normoactive Flatus Presence: Present Stool: No Fundal Description: Firm, Midline Fundal Height: u/3 - u/4 Objective-Diagnostic Laboratory: 10/07/16 06:38 Assessment and Plan(PN) - Time Spent with Patient Medications reviewed and adjusted accordingly: Yes - Disposition Anticipated Discharge: Home
--- NOTE | 2016-10-08 10:09 | PDOC DISCHARGE SUMMARY ---
Final Diagnosis Discharge Date: 10/08/16 - Final Diagnosis (1) delivery delivered Is this a current diagnosis for this admission?: Yes (2) Obesity Is this a current diagnosis for this admission?: Yes (3) Is this a current diagnosis for this admission?: Yes Discharge Data - Discharge Medication Home Medications: Pnv W-O Ca No5/Fe Fumarate/FA [-U Multiple Vitamin Capsule] 1 each PO DAILY 08/23/12 Docusate Sodium [Colace 100 mg Capsule] 100 mg PO BID #30 capsule 10/08/16 Docusate Sodium [Colace 100 mg Capsule] 100 mg PO DAILY #0 capsule 10/08/16 Ibuprofen [Motrin 800 mg Tablet] 800 mg PO Q6 #30 tablet 10/08/16 Oxycodone HCl/Acetaminophen [Percocet 5-325 mg Tablet] 1 tab PO Q4HP PRN #20 tablet 10/08/16 Gestational Age: 38.5 wks Reason(s) for Admission: Ceasarean Section-Repeat Procedures: Ultrasound Intrapartum Procedure(s): : Low Cervical, Transverse - [place] Data Baby 1 Female at 1 minute: 8 at 5 minutes: 9 Weight: 3.487 kg Home with Mother: Yes Complications: No - Diagnosis Test Laboratory: Temp Pulse Resp BP Pulse Ox 97.6 F 70 14 123/61 99 10/08/16 08:15 10/08/16 08:15 10/08/16 08:15 10/08/16 08:15 10/08/16 08:15 10/06/16 10/06/16 10/07/16 18:47 20:17 06:38 RBC 4.84 4.24 Hgb 12.7 11.2 L Hct 38.7 33.9 L Urine Opiates Screen NEGATIVE - Discharge information/Instructions Discharge Activity: Activity As Tolerated, Balance Activity w/Rest, No Driving, No Lifting Over 10 Pounds, No Lifting/Push/Pulling, Non-Ambulatory Child, Pelvic Rest, Slowly Increase Activity, No tub bath Discharge Diet: Regular Disposition: HOME, SELF-CARE Follow up with: [facility] in: 1, Weeks
--- NOTE | 2016-10-19 23:08 | Operative Report ---
Operative Report DATE OF SURGERY: 10/06/16 PREOPERATIVE DIAGNOSIS: 38 week , SROM. Previous section. Breech presentation. Undesired future fertility POSTOPERATIVE DIAGNOSIS: same, delivered OPERATION: Repeat Low Transverse Section. Bilateral Tubal Ligation by Modified Josephine Method SURGEON: KAMRON LINK ANESTHESIA: Spinal TISSUE REMOVED OR ALTERED: placenta. midportion bilateral fallopian tubes COMPLICATIONS: none ESTIMATED BLOOD LOSS: 500cc INTRAOPERATIVE FINDINGS: viable female infant weight 7-11, ap 8/9. Breech presentation. spontaneous intact placenta 3vc. normal uterus, ovaries, tubes PROCEDURE: After appropriate consents had been obtained, the patient was taken to the operating room where regional anesthesia was placed without difficulty. The patient was prepped and draped in the normal sterile fashion in the dorsal supine position with a leftward tilt. Time out procedure was performed. Anesthesia was determined to be adequate and a pfannenstiel incision was made through the prior scar. The fascia was nicked in the midline then extended bilaterally with Healy scissors. The fascia was elevated and then the rectus muscles dissected off sharply. The rectus muscles were then in the midline and the peritonuem identified. The peritoneum was entered sharply and extended with good visualization of the bladder. Bladder blade was inserted and the bladder flap carefully dissected off the lower uterine segment. A transverse incision was made with the scalpel then extended bilaterally in an upward outward motion across the lower uterine segment. Amniotomy revealed clear fluid. The vertex was grasped and elevated easily through the incision followed by the remainder of the infant. The cord was doubly clamped and ligated. The was handed off the operative field to the waiting pediatric team. The placenta was then extracted manually intact. The uterus was exteriorized and cleansed of membranous tissue with a sponge on the sifter operator's hand. The uterine incision was then repaired using 0 vicryl in a running locked fashion. A second layer of the same suture was used to imbricate for hemastasis. Attention was then returned to the right fallopian tube which was grasped in the midportion with a vanessa clamp. A window was created in the mesosalpinx with the bovie. Suture 0plain ties were then placed proximally and distally and the midportion of the tube removed with metzenbaum sutures. Hemostasis along the mesosalpinx was achieved with the bovie. This procedure was then repeated on the left fallopian tube. All operative sites were hemostatic. The uterus was then returned to the abdomen and gutters were cleared of clots and debris. The fascial incision was closed with 0 vicryl in a running fashion to the midline. The subcutaneous layer was closed with 0 plain in a running stitch. the skin was closed with 4-0 monocryl in subcuticular running stitch. Sponge, lap and needle counts were correct. The patient was transferred to recovery in stable condition.
--- NOTE | 2016-10-20 15:57 | Admission Physical ---
Datetime Report Generated by CPN: 10/20/2016 15:56 CURRENT ADMISSION Hx Assessment: The History has been Reviewed and is Current Chief Complaint: Uterine Contractions; Suspected Ruptured Membranes Indication for Induction: Not Applicable Admit Plan: Admit to Unit; Initiate Labor Protocol ALLERGIES Medication Allergies: Yes Medication Allergies: Sulfa (Sulfonamide Antibiotics)/MO/rash (10/06/2016) Latex: No Latex Allergies OBSTETRICAL HISTORY EDC: 10/15/2016 00:00 : 2 Para: 1 Term: 1 : 0 SAB: 0 IAB: 0 Ectopic: 0 Livin Cesareans: 1 VBACs: 0 Multiple Births: 0 Gestational Diabetes: No Rh Sensitization: No Incompetent Cervix: No TOPHER: No Infertility: No ART Treatment: No Uterine Anomaly: No IUGR: No Hx Previous C/S: No Macrosomia: No Hx Loss/Stillborn: No PIH: No Hx : No Placenta Previa/Abruption: No Depression/PP Depression: No PTL/PROM: No Post Hemorrhage: No Current Procedures: Ultrasound; NST Obstetrical History Comments: 2012- 2016- current SEE RECORDS Alcohol: No Marijuana : No Cocaine: No Other Illicit Drugs: No Cigarettes: Never Smoker. 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: No Heart Disease: No Hosp/Surgery: No Autoimmune Disorder: No Anesthetic Complications: No Kidney Disease: No Abnormal Pap Smear: No Neuro/Epilepsy: No Psychiatric Disorders: No Other Medical Diseases: No Hepatitis/Liver Disease: No Significant Family History: No Varicosities/Phlebitis: No Trauma/Violence : No Thyroid Dysfunction: No Medical History Comments: obesity INFECTIOUS HISTORY Gonorrhea: No Genital Herpes: No Chlamydia: No Tuberculosis: No Syphilis: No Hepatitis: No HIV/AIDS Exposure: No Rash or Viral Illness: No HPV: No PHYSICAL EXAM General: Normal HEENT: Deferred Neurologic: Deferred Thyroid: Deferred Heart: Normal Lungs: Normal Breast: Deferred Back: Deferred Abdomen: Normal Genitourinary Exam: Normal Extremities: Normal DTRs: Normal Pelvic Type: Adequate Vital Signs: Reviewed; Within Normal Limits MEMBRANES Membranes: Ruptured FETUS A EGA: 38.5 Admit Comment: Term. SROM for repeat LTCS and BTL PLANS FOR LABOR AND DELIVERY Labor and Delivery: None Pain Management: Spinal Other Pain Management Plans: planned c/s //17 Feeding Preference: Breast Benefit of Breast Feed Discussed: Yes Circumcision: N/A INFORMED CONSENT Signature: with User ID: [email or web address]
== END 2016-10-08 19:20 | disposition home or self-care (01) | DRG 765 ==
LOC: LC 18:25 → LR 19:52 → 2S 10-07 00:10
PROVIDERS: ADMIT Obstetrics & Gynecology; ATTEND Obstetrics & Gynecology
PROC: 10D00Z1 Extraction of Products of Conception, Low, Open Approach (ICD-10-PCS; principal; 2016-10-06)
PROC: 0UB70ZZ Excision of Bilateral Fallopian Tubes, Open Approach (ICD-10-PCS; 2016-10-06)
PROC: 4A1HXCZ Monitoring of Products of Conception, Cardiac Rate, External Approach (ICD-10-PCS; 2016-10-06)
DX: O34.211 Maternal care for low transverse scar from previous cesarean delivery (principal); Z68.42 Body mass index [BMI] 45.0-49.9, adult; O99.214 Obesity complicating childbirth; E66.9 Obesity, unspecified; Z3A.38 38 weeks gestation of pregnancy; Z37.0 Single live birth; Z30.2 Encounter for sterilization; Z88.2 Allergy status to sulfonamides
CPT/HCPCS: 1961; 36415; 59025; 80307; 81001; 81005; 85025; 85027; 86592; 86850; 86900; 86901; 88302; 94799; J0131; J0690; J1170; J1885; J2250; J2270; J2370; J2405; J2590; J3010; J3490; J7120